=== PATIENT | male | born 1940 | race Caucasian/White ===

== ENCOUNTER 2022-08-23 14:57 | Outpatient (CLI) | payer MEDICARE | END 2022-08-23 14:58 | disposition home or self-care (01) | LOC: BICRAD 14:57 | PROVIDERS: ATTEND Family Medicine | DX: M40.14 Other secondary kyphosis, thoracic region (principal); M47.814 Spondylosis without myelopathy or radiculopathy, thoracic region | CPT/HCPCS: 72070 ==

== ENCOUNTER 2022-08-30 14:31 | Outpatient (CLI) | payer MEDICARE | END 2022-08-30 14:32 | disposition home or self-care (01) | LOC: TBSIIMAG 14:31 | PROVIDERS: ATTEND Family Medicine | DX: G91.2 (Idiopathic) normal pressure hydrocephalus (principal); M40.15 Other secondary kyphosis, thoracolumbar region; M47.816 Spondylosis without myelopathy or radiculopathy, lumbar region; M46.06 Spinal enthesopathy, lumbar region; M89.38 Hypertrophy of bone, other site; I67.82 Cerebral ischemia; G31.9 Degenerative disease of nervous system, unspecified; G93.89 Other specified disorders of brain; M53.82 Other specified dorsopathies, cervical region | CPT/HCPCS: 70551; 72100 ==

== ENCOUNTER 2024-01-30 08:36 | Outpatient (CLI) | payer MEDICARE | END 2024-01-30 08:37 | disposition home or self-care (01) | LOC: NM 08:36 | PROVIDERS: ATTEND Family Medicine | DX: G20.B1 Parkinson's disease with dyskinesia, without mention of fluctuations (principal) | CPT/HCPCS: 78803; A9584 ×2 ==

== ENCOUNTER 2024-12-25 13:51 | Outpatient (CLI) | payer OTHER | END 2024-12-25 13:52 | disposition home or self-care (01) | LOC: BICMAMMO 13:51 | PROVIDERS: ATTEND Family Medicine | DX: M81.0 Age-related osteoporosis without current pathological fracture (principal); M54.50 Low back pain, unspecified; M41.9 Scoliosis, unspecified; M47.816 Spondylosis without myelopathy or radiculopathy, lumbar region; M85.859 Other specified disorders of bone density and structure, unspecified thigh | CPT/HCPCS: 72100; 77080 ==

== ENCOUNTER 2025-01-17 13:13 | Outpatient (CLI) | payer OTHER | END 2025-01-17 13:14 | disposition home or self-care (01) | LOC: BICMRI 13:13 | PROVIDERS: ATTEND Family Medicine | DX: M54.50 Low back pain, unspecified (principal); M47.816 Spondylosis without myelopathy or radiculopathy, lumbar region; M48.05 Spinal stenosis, thoracolumbar region; M48.061 Spinal stenosis, lumbar region without neurogenic claudication; M48.07 Spinal stenosis, lumbosacral region; M47.815 Spondylosis without myelopathy or radiculopathy, thoracolumbar region; M47.817 Spondylosis without myelopathy or radiculopathy, lumbosacral region | CPT/HCPCS: 72148 ==

== ENCOUNTER 2025-04-22 19:40 | Emergency (ER) | payer OTHER | END 2025-04-22 22:30 | disposition home or self-care (01) | LOC: ERS 19:40 | DX: S51.812A Laceration without foreign body of left forearm, initial encounter (principal); S50.02XA Contusion of left elbow, initial encounter; F17.220 Nicotine dependence, chewing tobacco, uncomplicated; W19.XXXA Unspecified fall, initial encounter | CPT/HCPCS: 90715 ==